=== PATIENT | female | born 1980 | race Caucasian/White ===

== ENCOUNTER 2017-06-20 04:29 | Inpatient (IN) | payer OTHER ==
[~2017-06-20] VITALS: Ht 167.6 cm; Wt 77.3 kg
[2017-06-20 04:33] VITALS: Ht 167.6 cm; Wt 77.3 kg
[2017-06-20 05:22] LABS: PLATELET COUNT 270 x10^3mcL (130-400)
[2017-06-20 05:23] LABS: BASOPHIL % 0 % (0-2); RED CELL DISTRIBUTION WIDTH 15.3 % (11.5-14.5)
[2017-06-20 05:30] LABS: UA SPECIFIC GRAVITY 1.025 (1.005-1.035); microscopic required? YES; urine erythrocyte 3+ (NEGATIVE)
[2017-06-20 05:37] LABS: CALCIUM 8.2 mg/dL (8.5-10.1); CARBON DIOXIDE 23.6 mmol/L (21-32); CHLORIDE SERUM 101 mmol/L (98-107); CREATININE SERUM 0.7 mg/dL (0.6-1.0); GFR1 > 60 mL/min; GLUCOSE SERUM 120 mg/dL (74-106); POTASSIUM SERUM 3.4 mmol/L (3.5-5.1); SODIUM SERUM 136 mmol/L (136-145)
[2017-06-20 05:51] LABS: ALBUMIN 3.6 g/dL (3.4-5.0); ALKALINE PHOSPHATASE 64 U/L (46-116); ALT/SGPT 21 U/L (14-59); AST/SGOT 17 U/L (15-37); BILIRUBIN TOTAL 0.3 mg/dL (0.20-1.00); LIPASE 51 IU/L (73-393); TOTAL PROTEIN, SERUM 7.2 g/dL (6.4-8.2)
[2017-06-20 08:19] LABS: T3 TOTAL 0.82 ng/mL
[2017-06-20 08:48] LABS: AMPHETAMINE QUAL UR NONE DETECTED (NEG <=1000)
[2017-06-20 09:05] LABS: FREE T4 1.03 ng/dL (0.76-1.46); FREE THYROXINE INDEX 2.3 ug/dL (1.4-4.5); T4(THYROXINE) 6.6 ug/dL (4.7-13.3)
[2017-06-20 10:51] LABS: MAGNESIUM 1.7 mg/dL (1.8-2.4); PHOSPHOROUS 2.9 mg/dL (2.5-4.9)
[2017-06-20 10:57] LABS: CHOLESTEROL/HDL RATIO 3.8
[2017-06-20 11:24] VITALS: BP 105/49
[2017-06-20 16:53] VITALS: BP 103/62
[2017-06-20 20:41] VITALS: BP 100/59
[2017-06-21 06:09] VITALS: BP 99/57
[2017-06-21 07:18] LABS: CALCIUM 7.8 mg/dL (8.5-10.1); CARBON DIOXIDE 23.5 mmol/L (21-32); CHLORIDE SERUM 104 mmol/L (98-107); CREATININE SERUM 0.7 mg/dL (0.6-1.0); GFR1 > 60 mL/min; GLUCOSE SERUM 87 mg/dL (74-106); MAGNESIUM 1.9 mg/dL (1.8-2.4); PHOSPHOROUS 2.4 mg/dL (2.5-4.9); POTASSIUM SERUM 3.7 mmol/L (3.5-5.1); SODIUM SERUM 138 mmol/L (136-145)
[2017-06-21 07:26] LABS: BASOPHIL % 0.4 % (0-2); PLATELET COUNT 219 x10^3mcL (130-400); RED CELL DISTRIBUTION WIDTH 15.3 % (11.5-14.5)
[2017-06-21 09:01] VITALS: BP 106/57
[2017-06-21 13:15] VITALS: BP 92/42
[2017-06-21 17:03] VITALS: BP 97/54
[2017-06-21 20:51] VITALS: BP 95/60
[2017-06-22 05:50] VITALS: BP 103/67
[2017-06-22 07:39] LABS: BASOPHIL % 0.8 % (0-2); PLATELET COUNT 242 x10^3mcL (130-400)
[2017-06-22 07:56] LABS: RED CELL DISTRIBUTION WIDTH 15.3 % (11.5-14.5)
[2017-06-22 08:32] LABS: CARBON DIOXIDE 23.8 mmol/L (21-32); CHLORIDE SERUM 106 mmol/L (98-107); CREATININE SERUM 0.5 mg/dL (0.6-1.0); GFR1 > 60 mL/min; GLUCOSE SERUM 96 mg/dL (74-106); SODIUM SERUM 141 mmol/L (136-145)
[2017-06-22 09:11] VITALS: BP 94/55
[2017-06-22] MEDS ORDERED: GOOD SENSE OMEP20 MG PO (10:28)
[2017-06-22] MEDS ORDERED: PEPL PO (10:29)
[2017-06-22] MEDS ORDERED: IMODIUM A-D2 M3 PO (10:29)
[2017-06-22] MEDS ORDERED: LEVAQUIN750 MG PO (12:02)
[2017-06-22] MEDS ORDERED: BD LACTINEX1.4 MG PO (12:02)
[2017-06-22 13:17] VITALS: BP 94/55
[2017-06-22 13:48] VITALS: BP 106/62
== END 2017-06-22 15:03 | disposition home or self-care (01) | DRG 249 ==
LOC: ED 04:29 → DU 07:30 → MU 07:30 → DU 10:53 → MU 06-21 16:19
PROVIDERS: Emergency Medicine; Family Medicine Sports Medicine
DX: A08.4 Viral intestinal infection, unspecified (principal); N17.0 Acute kidney failure with tubular necrosis; Z98.51 Tubal ligation status; E83.42 Hypomagnesemia; N39.0 Urinary tract infection, site not specified; E87.6 Hypokalemia; R31.9 Hematuria, unspecified; E78.5 Hyperlipidemia, unspecified; E86.0 Dehydration
CPT/HCPCS: 83880; 84439; 87046; 87046-59; 87491; 87591; J0696; J1580; J1956; J2060; J2270; J2405; J3490; J7030; Q0092